=== PATIENT | male | born 1995 ===

== ENCOUNTER 2016-12-04 04:12 | Emergency (ER) | payer BC ==
[~2016-12-04] VITALS: Ht 162.6 cm; Wt 70.0 kg
[2016-12-04 04:16] VITALS: Ht 162.6 cm; Wt 70.0 kg
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
== END 2016-12-04 04:44 | disposition home or self-care (01) ==
LOC: E/R 04:12
DX: F10.920 Alcohol use, unspecified with intoxication, uncomplicated (principal)
CPT/HCPCS: 99283